=== PATIENT | female | born 1985 | race Caucasian/White ===

== ENCOUNTER 2021-12-17 18:00 | Inpatient (IN) | payer BC ==
[2022-01-17] MEDS ORDERED: Bupivacaine PF 0.5% 30 ML VIAL ONE (07:00)
[2022-01-17] MEDS ORDERED: Bupivacaine/Epinephrine 0.25% 30 ML VIAL ONE (07:00)
[2022-01-17] MEDS ORDERED: ePHEDrine Sulfate 50 MG/10 ML VIAL ONE (07:00)
[2022-01-17] MEDS ORDERED: Bupivacaine 0.25% HCL 30 ML VIAL ONE (07:00)
[2022-01-17] MEDS ORDERED: Lactated Ringer's 1,000 ML IV SCH (18:48)
[2022-01-17] MEDS ORDERED: Promethazine HCl 25 MG/ML VIAL IM PRN ×2 (18:48→23:58)
[2022-01-17] MEDS ORDERED: hydrALAZINE 20 MG/ML VIAL SLOW IVP PRN (18:48)
[2022-01-17] MEDS ORDERED: Ondansetron PF 4 MG/2 ML Vial IVP PRN ×2 (18:48→23:58)
[2022-01-17] MEDS ORDERED: HYDROcodone/Acetaminophen 5/325 mg Tablet PO PRN ×2 (18:48)
[2022-01-17] MEDS ORDERED: NS w/ Oxytocin 30 units 500 ML IV SCH ×3 (18:48)
[2022-01-17] MEDS ORDERED: Ibuprofen 800 MG TAB PO PRN (18:48)
[2022-01-17 19:07] LABS: Hemoglobin 13.3 g/dL (12.0-15.5); Mean Corpuscular HGB CONC 36.2 g/dL (32.0-36.0); Mean Corpuscular Hemoglobin 33.5 pg (27.0-33.0); Mean Corpuscular Volume 92.4 fl (81.6-98.3); Mean Platelet Volume 10.8 fl (7.4-10.4); Platelet Count 215 10x3/uL (150-450); RBC Distribution Width 13.2 % (11.5-14.5); Red Blood Cell (RBC) Count 3.97 10x6/uL (3.90-5.03)
[2022-01-17 19:36] LABS: HBSAg Index 0.17 S/CO (0-0.99); Hep B Surf Ag Non-Reactive S/CO (NonReactive)
[2022-01-17 19:38] LABS: Syphilis Antibody Nonreactive (Nonreactive); Syphilis Antibody Index 0.03 S/CO (<1.00 Non-Reactive)
[2022-01-17 20:29] VITALS: BMI 31.2
[2022-01-17 21:03] LABS: SARS-CoV-2 NAA Rapid Test Not Detected (NotDetected)
[2022-01-17] MEDS ORDERED: Fentanyl 2 mcg/Bup 0.1% Cadd 100 ML ONE (23:09)
[2022-01-17] MEDS ORDERED: Communication Order-Pharmacy FS SCH (23:45)
[2022-01-17] MEDS ORDERED: ePHEDrine Sulfate 50 MG/10 ML VIAL SLOW IVP PRN (23:58)
[2022-01-17] MEDS ORDERED: diphenhydrAMINE 50 MG/ML VIAL IVP PRN (23:58)
[2022-01-17] MEDS ORDERED: Lactated Ringer's 500 ML IV PRN (23:58)
[2022-01-17] MEDS ORDERED: Acetaminophen 325 MG TAB PO PRN (23:58)
[2022-01-17] MEDS ORDERED: Moisturizing Cream (Eucerin) 113 GM JAR TOP PRN (23:58)
[2022-01-17] MEDS ORDERED: Naloxone HCl 0.4 mg/ml Vial IVP PRN ×2 (23:58)
[2022-01-18] MEDS: Fentanyl 2 mcg/Bupivacaine 0.1% Cassette 100 ML EPIDURAL SCH ×2 (07:41→15:18)
[2022-01-18] MEDS ORDERED: diphenhydrAMINE 25 MG CAP PO PRN (20:37)
[2022-01-18] MEDS ORDERED: HYDROcodone/Acetaminophen 5/325 mg Tablet PO PRN ×2 (20:37)
[2022-01-18] MEDS ORDERED: Boostrix 0.5 ML (Tdap) VIAL (>/=7 yrs of age) IM ONE (20:37)
[2022-01-18] MEDS ORDERED: Milk Of Magnesia 30 ML UDCUP PO PRN (20:37)
[2022-01-18] MEDS ORDERED: Bisacodyl 10 MG SUPP PR PRN (20:37)
[2022-01-18] MEDS ORDERED: Lanolin Ointment 7 GM TUBE TOP PRN (20:37)
[2022-01-18] MEDS ORDERED: Preparation H Ointment 28 GM TUBE PR PRN (20:37)
[2022-01-18] MEDS ORDERED: Benzocaine-Menthol 82.5 ML CAN TOP PRN (20:37)
[2022-01-18] MEDS ORDERED: Ondansetron PF 4 MG/2 ML Vial IVP PRN (20:37)
[2022-01-18] MEDS ORDERED: hydrALAZINE 20 MG/ML VIAL SLOW IVP PRN (20:37)
[2022-01-19] MEDS: Ibuprofen 800 MG TAB PO SCH ×3 (05:03→13:45)
[2022-01-19] MEDS: Docusate 100 MG CAP PO SCH ×2 (07:55→08:49)
[2022-01-19] MEDS: Ferrous Sulfate 325 MG TAB PO SCH ×2 (07:56→16:43)
[2022-01-19] MEDS ORDERED: Prenatal Vitamin 1 TAB PO SCH (09:00)
[2022-01-19 20:04] VITALS: BP 120/73; TEMP 97.7
== END 2022-01-19 20:20 | disposition home or self-care (01) | DRG 807 ==
LOC: CSHLD 01-17 18:04 → CSHPP 01-18 21:18
PROVIDERS: ADMIT Obstetrics & Gynecology; ATTEND Obstetrics & Gynecology
PROC: 10E0XZZ Delivery of Products of Conception, External Approach (ICD-10-PCS; principal; 2022-01-18)
PROC: 0KQM0ZZ Repair Perineum Muscle, Open Approach (ICD-10-PCS; 2022-01-18)
PROC: 10907ZC Drainage of Amniotic Fluid, Therapeutic from Products of Conception, Via Natural or Artificial Opening (ICD-10-PCS; 2022-01-18)
PROC: 10H07YZ Insertion of Other Device into Products of Conception, Via Natural or Artificial Opening (ICD-10-PCS; 2022-01-18)
DX: O34.211 Maternal care for low transverse scar from previous cesarean delivery (principal); Z37.0 Single live birth; Z20.822 Contact with and (suspected) exposure to COVID-19; Z3A.38 38 weeks gestation of pregnancy; O70.1 Second degree perineal laceration during delivery; O26.893 Other specified pregnancy related conditions, third trimester; Z67.21 Type B blood, Rh negative
CPT/HCPCS: 36415; 51702; 85027; 86780; 86850; 86870; 86900; 86901; 87340; J2405; J2590; S0020; U0002

== ENCOUNTER 2023-09-12 05:19 | Inpatient (IN) | payer BC ==
[2023-09-12 05:46] VITALS: BMI 31.4
[2023-09-12] MEDS ORDERED: Oxytocin 30 units/NS 500 ML 500 ML IV SCH ×2 (06:31→22:22)
[2023-09-12] MEDS ORDERED: Lactated Ringer's 1,000 ML IV SCH (06:31)
[2023-09-12] MEDS ORDERED: HYDROcodone/Acetaminophen 5/325 mg Tablet PO PRN ×4 (06:31→22:22)
[2023-09-12] MEDS ORDERED: hydrALAZINE 20 MG/ML VIAL SLOW IVP PRN ×2 (06:31→22:22)
[2023-09-12] MEDS ORDERED: Ondansetron PF 4 MG/2 ML Vial IVP PRN ×3 (06:31→22:22)
[2023-09-12] MEDS ORDERED: Promethazine HCl 25 MG/ML VIAL IM PRN ×2 (06:31→10:10)
[2023-09-12] MEDS ORDERED: Lidocaine 1% (PF) 30 ML VIAL SC PRN (06:31)
[2023-09-12] MEDS ORDERED: fentaNYL 50 mcg/mL 1 mL Vial SLOW IVP PRN (06:31)
[2023-09-12 06:46] LABS: Hematocrit 36.1 % (34.9-44.5); Hemoglobin 13.3 g/dL (12.0-15.5); Mean Corpuscular HGB CONC 36.8 g/dL (32.0-36.0); Mean Corpuscular Volume 92.3 fL (81.6-98.3); Mean Platelet Volume 11.1 fL (7.4-10.4); Platelet Count 208 10x3/uL (150-450); Red Blood Cell (RBC) Count 3.91 10x6/uL (3.90-5.03); White Blood Cell (WBC) Count 10.3 10x3/uL (3.5-10.5)
[2023-09-12 07:09] LABS: Syphilis Antibody Nonreactive (Nonreactive); Syphilis Antibody Index 0.03 S/CO (<1.00 Non-Reactive)
[2023-09-12 07:10] LABS: HBsAg Index 0.16 S/CO (0-0.99); Hep B Surf Ag - L&D Non-Reactive S/CO (NonReactive)
[2023-09-12] MEDS: Oxytocin 30 units/NS 500 ML 500 ML IV SCH (07:22)
[2023-09-12] MEDS ORDERED: fentaNYL/Ropivacaine Epidural 100 ML ONE (10:04)
[2023-09-12] MEDS ORDERED: Naloxone HCl 0.4 mg/ml Vial IVP PRN ×2 (10:10)
[2023-09-12] MEDS ORDERED: Acetaminophen 325 MG TAB PO PRN (10:10)
[2023-09-12] MEDS ORDERED: diphenhydrAMINE 50 MG/ML VIAL IVP PRN (10:10)
[2023-09-12] MEDS ORDERED: Moisturizing Cream (Eucerin) 113 GM JAR TOP PRN (10:10)
[2023-09-12] MEDS ORDERED: ePHEDrine Sulfate 50 MG/10 ML VIAL SLOW IVP PRN (10:10)
[2023-09-12] MEDS ORDERED: Lactated Ringer's 500 ML IV PRN (10:10)
[2023-09-12] MEDS ORDERED: Communication Order-Pharmacy FS SCH (10:15)
[2023-09-12] MEDS: fentaNYL 2 mcg/Ropivacaine 0.2% Epidural 100 ML CADD EPIDURAL SCH (10:40)
[2023-09-12] MEDS: Ibuprofen 800 MG TAB PO PRN (20:47)
[2023-09-12] MEDS ORDERED: Preparation H Ointment 28 GM TUBE PR PRN (22:22)
[2023-09-12] MEDS ORDERED: diphenhydrAMINE 25 MG CAP PO PRN (22:22)
[2023-09-12] MEDS ORDERED: Milk Of Magnesia 30 ML UDCUP PO PRN (22:22)
[2023-09-12] MEDS ORDERED: Boostrix 0.5 ML (Tdap) VIAL (>/=7 yrs of age) IM ONE (22:22)
[2023-09-12] MEDS ORDERED: Bisacodyl 10 MG SUPP PR PRN (22:22)
[2023-09-12] MEDS ORDERED: Lanolin Ointment 7 GM TUBE TOP PRN (22:22)
[2023-09-12] MEDS ORDERED: Benzocaine-Menthol 82.5 ML CAN TOP PRN (22:22)
[2023-09-12] MEDS: Docusate 100 MG CAP PO SCH (22:55)
[2023-09-13] MEDS: Ibuprofen 800 MG TAB PO SCH (05:05)
[2023-09-13 11:54] VITALS: BP 113/61; TEMP 98.2
[2023-09-13] MEDS: Prenatal Vitamin 1 TAB PO SCH (14:38)
[2023-09-13] MEDS: Docusate 100 MG CAP PO SCH (14:38)
[2023-09-13] MEDS: Ferrous Sulfate 325 MG TAB PO SCH (14:38)
== END 2023-09-13 20:30 | disposition home or self-care (01) | DRG 807 ==
LOC: CSHLD 05:19 → CSHPP 21:46
PROVIDERS: ADMIT Obstetrics & Gynecology; ATTEND Obstetrics & Gynecology
PROC: 10E0XZZ Delivery of Products of Conception, External Approach (ICD-10-PCS; principal; 2023-09-12)
PROC: 0HQ9XZZ Repair Perineum Skin, External Approach (ICD-10-PCS; 2023-09-12)
PROC: 3E0P7VZ Introduction of Hormone into Female Reproductive, Via Natural or Artificial Opening (ICD-10-PCS; 2023-09-12)
PROC: 10907ZC Drainage of Amniotic Fluid, Therapeutic from Products of Conception, Via Natural or Artificial Opening (ICD-10-PCS; 2023-09-12)
PROC: 3E033XZ Introduction of Vasopressor into Peripheral Vein, Percutaneous Approach (ICD-10-PCS; 2023-09-12)
DX: O70.0 First degree perineal laceration during delivery (principal); Z37.0 Single live birth; O43.123 Velamentous insertion of umbilical cord, third trimester; O76 Abnormality in fetal heart rate and rhythm complicating labor and delivery; Z3A.39 39 weeks gestation of pregnancy; Z98.891 History of uterine scar from previous surgery; O26.893 Other specified pregnancy related conditions, third trimester; Z67.21 Type B blood, Rh negative
CPT/HCPCS: 51702; 85027; 86780; 86850; 86870; 86900; 86901; 87340; 99285; J2590